=== PATIENT | male | born 1965 | race Caucasian/White ===

== ENCOUNTER 2016-08-28 15:20 | Emergency (ER) | payer OTHER | END 2016-08-28 15:51 | disposition home or self-care (01) | LOC: ER 15:20 | DX: S42.031A Displaced fracture of lateral end of right clavicle, initial encounter for closed fracture (principal); I10 Essential (primary) hypertension; F17.200 Nicotine dependence, unspecified, uncomplicated; V89.2XXA Person injured in unspecified motor-vehicle accident, traffic, initial encounter | CPT/HCPCS: 71100-RT; 73000-RT; 73030-RT; 99284 ==